=== PATIENT | female | born 1935 | race Caucasian/White ===

== ENCOUNTER 2019-05-05 12:30 | Outpatient (CLI) | payer OTHER | END 2019-05-05 12:44 | disposition home or self-care (01) | LOC: NUCLEAR 12:30 | DX: M81.0 Age-related osteoporosis without current pathological fracture (principal); M54.5 Low back pain; M54.6 Pain in thoracic spine ==

== ENCOUNTER 2019-05-14 06:20 | Outpatient (CLI) | payer OTHER | END 2019-05-14 06:25 | disposition home or self-care (01) | LOC: LAB 06:20 | DX: E21.3 Hyperparathyroidism, unspecified (principal); E56.1 Deficiency of vitamin K; M81.8 Other osteoporosis without current pathological fracture; E88.89 Other specified metabolic disorders; E83.42 Hypomagnesemia ==

== ENCOUNTER 2020-07-20 11:34 | Outpatient (CLI) | payer OTHER | END 2020-07-20 13:05 | disposition home or self-care (01) | LOC: NUCLEAR 11:34 | PROVIDERS: ATTEND Orthopaedic Surgery | DX: M81.0 Age-related osteoporosis without current pathological fracture (principal) ==

== ENCOUNTER 2020-07-28 07:21 | Outpatient (CLI) | payer OTHER | END 2020-07-28 07:29 | disposition home or self-care (01) | LOC: LAB 07:21 | PROVIDERS: ATTEND Orthopaedic Surgery | DX: M85.88 Other specified disorders of bone density and structure, other site (principal); E55.9 Vitamin D deficiency, unspecified; E21.2 Other hyperparathyroidism; E88.89 Other specified metabolic disorders; M81.8 Other osteoporosis without current pathological fracture; E56.1 Deficiency of vitamin K ==

== ENCOUNTER 2020-11-15 11:09 | Outpatient (CLI) | payer OTHER ==
[2020-11-16] MEDS ORDERED: SIMVASTATIN5 MG (16:29)
[2020-11-16] MEDS ORDERED: MONTELUKAST SODI4 M1 (16:29)
[2020-11-16] MEDS ORDERED: VERELAN240 MG (16:29)
== END 2020-11-15 11:16 | disposition home or self-care (01) ==
LOC: RAD 11:09
PROVIDERS: ATTEND Orthopaedic Surgery
DX: M54.6 Pain in thoracic spine (principal); I70.0 Atherosclerosis of aorta

== ENCOUNTER 2020-11-16 16:12 | Emergency (ER) | payer OTHER ==
[~2020-11-16] VITALS: Ht 152.4 cm; Wt 59.0 kg
[2020-11-16] MEDS ORDERED: VERELAN240 MG (16:29)
[2020-11-16] MEDS ORDERED: MONTELUKAST SODI4 M1 (16:29)
[2020-11-16] MEDS ORDERED: SIMVASTATIN5 MG (16:29)
== END 2020-11-16 17:32 ==
LOC: ER 16:12
DX: M62.830 Muscle spasm of back (principal)

== ENCOUNTER 2020-11-17 15:17 | Emergency (ER) | payer OTHER ==
[~2020-11-17] VITALS: Ht 152.4 cm; Wt 58.1 kg
[~2020-11-17 15:17] MED LIST: MONTELUKAST SODI4 M1; SIMVASTATIN5 MG; VERELAN240 MG
== END 2020-11-17 19:50 | disposition home or self-care (01) ==
LOC: ER 15:17
DX: M40.295 Other kyphosis, thoracolumbar region (principal); M81.0 Age-related osteoporosis without current pathological fracture

== ENCOUNTER 2021-09-24 12:53 | Outpatient (CLI) | payer OTHER | END 2021-09-24 12:54 | disposition home or self-care (01) | LOC: NUCLEAR 12:53 | PROVIDERS: ATTEND Orthopaedic Surgery | DX: M81.0 Age-related osteoporosis without current pathological fracture (principal) ==

== ENCOUNTER 2024-01-29 12:50 | Outpatient (CLI) | payer OTHER | END 2024-01-29 12:51 | disposition home or self-care (01) | LOC: NUCLEAR 12:50 | PROVIDERS: ATTEND Orthopaedic Surgery | DX: M81.0 Age-related osteoporosis without current pathological fracture (principal) ==

== ENCOUNTER 2025-04-01 12:39 | Outpatient (CLI) | payer OTHER | END 2025-04-01 12:41 | disposition home or self-care (01) | LOC: NUCLEAR 12:39 | PROVIDERS: ATTEND Orthopaedic Surgery | DX: M81.0 Age-related osteoporosis without current pathological fracture (principal) ==